=== PATIENT | male | born 1945 | race Caucasian/White ===

== ENCOUNTER 2021-03-31 08:31 | Day surgery (SDC) | payer MEDICARE, BC, OTHER ==
[2021-03-31] MEDS ORDERED: Acetaminophen 500 MG TAB PO SCH (08:45)
[2021-03-31] MEDS ORDERED: diphenhydrAMINE 25 MG CAP PO SCH (08:45)
[2021-03-31] MEDS ORDERED: Sodium Chloride 0.9% 30 ML ONE (08:47)
[2021-03-31 13:44] VITALS: BP 172/80; TEMP 98.3
== END 2021-03-31 13:56 | disposition home or self-care (01) ==
LOC: ONC/OP 08:31
PROVIDERS: ATTEND Internal Medicine Hematology & Oncology
PROC: 30233N1 Transfusion of Nonautologous Red Blood Cells into Peripheral Vein, Percutaneous Approach (ICD-10-PCS; principal; 2021-03-31)
DX: D64.9 Anemia, unspecified (principal); D69.6 Thrombocytopenia, unspecified
CPT/HCPCS: 36430; 86850; 86900; 86901; J1642; P9016; Q0163

== ENCOUNTER 2022-03-18 14:38 | Inpatient (IN) | payer MEDICARE, BC, OTHER ==
[2022-03-18 15:06] LABS: Bacteria/HPF None Seen HPF (None Seen); Bilirubin Negative (Negative); Blood, Urine 3+ (Negative); Clarity Clear (Clear); Glucose, Urine (Dipstick) Normal (Negative); Ketone, Urine Negative (Negative); Leukocyte Negative Leu/uL (Negative); Nitrite Negative (Negative); Protein, Urine (Dipstick) 100 mg/dL (Neg-Trace); RBC/HPF 0-3 HPF (0-3); Squamous Epithelial None Seen HPF (0-3); Urobilinogen Normal mg/dL (Less than 2); WBC/HPF 0-3 HPF (0-3)
[2022-03-18 15:46] LABS: Hemoglobin 13.3 g/dL (14.0-18.0); Mean Corpuscular HGB CONC 32.5 g/dL (32.0-36.0); Mean Platelet Volume 8.1 fL (7.4-10.4); Platelet Count 329 thou/uL (130-400); RBC Distribution Width 15.9 % (11.5-14.5); White Blood Cell (WBC) Count 9.8 thou/uL (4.8-10.8)
[2022-03-18 16:06] LABS: ALT (SGPT) 52 U/L (8-55); AST (SGOT) 136 U/L (5-34); Albumin 3.7 g/dL (3.4-4.8); Alkaline Phosphatase 56 U/L (40-110); Anion Gap 12 mmol/L (10-20); BUN (Urea Nitrogen) 24 mg/dL (8.4-25.7); Bilirubin, Total 0.8 mg/dL (0.2-1.2); Calc. Creatinine Clearance 0 mL/min (70-130); Calcium 9.3 mg/dL (7.8-10.44); Carbon Dioxide 23 mmol/L (23-31); Chloride 106 mmol/L (98-107); Globulin 3.1 g/dL (2.4-3.5); Glucose 107 mg/dL (83-110); Potassium 4.3 mmol/L (3.5-5.1); Protein, Total 6.8 g/dL (5.8-8.1); Sodium 137 mmol/L (136-145)
[2022-03-18 16:14] LABS: Anisocytosis SLIGHT = 6-15 cells (100X) (0-5/hpf); Burr Cells SLIGHT = 2-5 cells (100X) (0-1/hpf); Lymphocytes 74 % (21-51); MDiff Complete? YES; Macrocytosis SLIGHT = 6-15 cells (100X) (0-5/hpf); Monocytes 23 % (0-10); Platelet Morphology Comment Appears Adequate; Polychromasia SLIGHT = 2-3 cells (100X) (0-2/hpf); Reactive Lymphocytes 2 % (0-10); Tear Drops SLIGHT = 2-5 cells (100X) (0-1/hpf)
[2022-03-18 16:27] LABS: SARS-CoV-2 NAA Rapid Test Not Detected (NotDetected)
[2022-03-18] MEDS ORDERED: Iopamidol-370 76% 500 ML 1 ML ONE (16:27)
[2022-03-18] MEDS ORDERED: Vancomycin 1.5 GRAM/300 ML BAG 1.5 GM in Premix Bag 1 BAG IVPB SCH (18:15)
[2022-03-18] MEDS ORDERED: Cefepime 2 GM VIAL ONE (18:23)
[2022-03-18] MEDS ORDERED: tiZANidine HCl 4 MG TAB PO PRN (19:43)
[2022-03-18] MEDS: Acetaminophen 325 MG TAB PO PRN (21:25)
[2022-03-18] MEDS: Pregabalin 50 MG CAP PO SCH (21:26)
[2022-03-18] MEDS: Apixaban 5 MG TAB PO SCH (21:26)
[2022-03-18] MEDS: traMADol HCl 50 MG TAB PO PRN (21:27)
[2022-03-18] MEDS: Sodium Chloride 0.9% 1,000 ML IV SCH (21:28)
[2022-03-18] MEDS ORDERED: Piperacillin/Tazobactam 3.375 GM in Sodium Chloride 0.9% 100 ML IVPB SCH ×2 (22:00→23:59)
[2022-03-18 23:48] VITALS: BMI 27.5
[2022-03-19] MEDS: Piperacillin/Tazobactam 3.375 GM in Sodium Chloride 0.9% 100 ML IVPB SCH ×3 (03:17→22:02)
[2022-03-19 07:04] LABS: Hemoglobin 12.2 g/dL (14.0-18.0); Mean Corpuscular HGB CONC 32.9 g/dL (32.0-36.0); Mean Corpuscular Hemoglobin 34.1 pg (27.0-31.0); Mean Platelet Volume 8.4 fL (7.4-10.4); Platelet Count 319 thou/uL (130-400); RBC Distribution Width 15.9 % (11.5-14.5); Red Blood Cell (RBC) Count 3.57 mill/uL (4.70-6.10); White Blood Cell (WBC) Count 5.8 thou/uL (4.8-10.8)
[2022-03-19 08:56] LABS: Anisocytosis SLIGHT = 6-15 cells (100X) (0-5/hpf); Burr Cells SLIGHT = 2-5 cells (100X) (0-1/hpf); Large Platelets SLIGHT; Lymphocytes 65 % (21-51); MDiff Complete? YES; Macrocytosis SLIGHT = 6-15 cells (100X) (0-5/hpf); Monocytes 34 % (0-10); Platelet Morphology Comment Appears Adequate; Vacuoles SLIGHT
[2022-03-19 08:57] LABS: Anion Gap 12 mmol/L (10-20); BUN (Urea Nitrogen) 21 mg/dL (8.4-25.7); Calc. Creatinine Clearance 69 mL/min (70-130); Calcium 8.6 mg/dL (7.8-10.44); Carbon Dioxide 21 mmol/L (23-31); Chloride 109 mmol/L (98-107); Glucose 97 mg/dL (83-110); Potassium 3.8 mmol/L (3.5-5.1); Sodium 138 mmol/L (136-145)
[2022-03-19] MEDS: Aspirin 81 mg Enteric Coated Tablet PO SCH (10:03)
[2022-03-19] MEDS: Pregabalin 50 MG CAP PO SCH ×3 (10:03→22:02)
[2022-03-19] MEDS: Tamsulosin HCl 0.4 MG CAP PO SCH (10:03)
[2022-03-19] MEDS: Apixaban 5 MG TAB PO SCH ×2 (10:04→22:02)
[2022-03-19] MEDS: traMADol HCl 50 MG TAB PO PRN ×2 (10:04→17:31)
[2022-03-19] MEDS: Sodium Chloride 0.9% 1,000 ML IV SCH ×2 (10:05→23:05)
[2022-03-19] MEDS ORDERED: Allopurinol 100 MG TAB PO PRN (10:07)
[2022-03-19] MEDS ORDERED: Non-Formulary Item 1 EACH (Desvenlafaxine [Desvenlafaxine Er] 50 MG Tab.Er.24h) PO SCH (10:07)
[2022-03-19] MEDS ORDERED: Non-Formulary Item 1 EACH (Omeprazole [Omeprazole] 40 MG Capsule.Dr) PO SCH (10:07)
[2022-03-19] MEDS ORDERED: Non-Formulary Item 1 EACH (Brimonidine Tartrate [Brimonidine Tartrate 0.15% Ophth Soln] 1 EA EYE SCH (10:07)
[2022-03-19] MEDS ORDERED: Latanoprost 0.005% Ophth Soln 2.5 ml Bottle EA EYE SCH (10:07)
[2022-03-19] MEDS ORDERED: valACYclovir 500 MG TAB PO SCH ×2 (10:07→11:00)
[2022-03-19] MEDS ORDERED: Prochlorperazine Maleate 5 MG TAB PO PRN (10:07)
[2022-03-19] MEDS ORDERED: Iopamidol-370 76% 500 ML 1 ML ONE (10:27)
[2022-03-19] MEDS: Fioricet 325/50/40 mg Tablet PO PRN (16:14)
[2022-03-19] MEDS: VANCOMYCIN 1.75 GM/500 ML BAG 1.75 GM in Premix Bag 1 BAG IVPB SCH (16:23)
[2022-03-19] MEDS ORDERED: Non-Formulary Item 1 EACH (Rosuvastatin Calcium [Rosuvastatin Calcium] 40 MG Tablet) PO SCH (21:00)
[2022-03-19] MEDS: HYDROcodone/Acetaminophen 10/325 mg Tablet PO PRN (22:00)
[2022-03-19] MEDS: Rosuvastatin 20 MG TAB PO SCH (22:01)
[2022-03-19] MEDS: valACYclovir 500 MG TAB PO SCH (22:02)
[2022-03-20] MEDS: Fioricet 325/50/40 mg Tablet PO PRN ×3 (00:08→16:48)
[2022-03-20] MEDS: Piperacillin/Tazobactam 3.375 GM in Sodium Chloride 0.9% 100 ML IVPB SCH ×3 (03:22→16:46)
[2022-03-20 06:30] LABS: Anion Gap 11 mmol/L (10-20); BUN (Urea Nitrogen) 14 mg/dL (8.4-25.7); Calc. Creatinine Clearance 81 mL/min (70-130); Calcium 7.9 mg/dL (7.8-10.44); Carbon Dioxide 19 mmol/L (23-31); Chloride 113 mmol/L (98-107); Glucose 95 mg/dL (83-110); Potassium 3.2 mmol/L (3.5-5.1); Sodium 140 mmol/L (136-145)
[2022-03-20 06:52] LABS: Hypochromia SLIGHT = 6-15 cells (100X) (0-5/hpf); Lymphocytes 79 % (21-51); MDiff Complete? YES; Macrocytosis SLIGHT = 6-15 cells (100X) (0-5/hpf); Mean Corpuscular HGB CONC 32.4 g/dL (32.0-36.0); Mean Corpuscular Hemoglobin 33.9 pg (27.0-31.0); Mean Platelet Volume 8.4 fL (7.4-10.4); Monocytes 8 % (0-10); Neutrophil 11 % (42-75); Platelet Count 340 thou/uL (130-400); Platelet Morphology Comment Appears Adequate; RBC Distribution Width 16.1 % (11.5-14.5); Reactive Lymphocytes 2 % (0-10); Red Blood Cell (RBC) Count 3.25 mill/uL (4.70-6.10); White Blood Cell (WBC) Count 6.4 thou/uL (4.8-10.8)
[2022-03-20] MEDS: Apixaban 5 MG TAB PO SCH ×2 (07:03→20:35)
[2022-03-20] MEDS: Latanoprost 0.005% Ophth Soln 2.5 ml Bottle EA EYE SCH ×2 (07:04→11:06)
[2022-03-20] MEDS: Pregabalin 50 MG CAP PO SCH ×3 (07:04→20:33)
[2022-03-20] MEDS: Aspirin 81 mg Enteric Coated Tablet PO SCH ×2 (07:04→11:02)
[2022-03-20] MEDS: Brimonidine Tartrate 0.2% Ophth Soln 5 ml Bottle EA EYE SCH ×2 (07:04→11:06)
[2022-03-20] MEDS: valACYclovir 500 MG TAB PO SCH ×3 (07:05→20:34)
[2022-03-20] MEDS: Venlafaxine HCl XR 75 MG CAP PO SCH ×2 (07:05→11:03)
[2022-03-20] MEDS: Tamsulosin HCl 0.4 MG CAP PO SCH ×2 (07:05→11:03)
[2022-03-20] MEDS ORDERED: Lidocaine 1% w/Epinephrine 1:100K 20 ML VIAL ONE (07:19)
[2022-03-20] MEDS ORDERED: Bupivacaine PF 0.5% 30 ML VIAL ONE (07:19)
[2022-03-20] MEDS ORDERED: fentaNYL Citrate/PF 100 MCG/2 ML SYRINGE ONE ×2 (07:24→08:56)
[2022-03-20] MEDS ORDERED: Lidocaine 2% Jelly 5 ML TUBE ONE (07:25)
[2022-03-20] MEDS ORDERED: Dexamethasone 20 MG/5 ML VIAL ONE (07:54)
[2022-03-20] MEDS ORDERED: ePHEDrine 50 MG/ML VIAL ONE (07:54)
[2022-03-20] MEDS ORDERED: PROPOFOL 200 MG/20 ML VIAL ONE (07:54)
[2022-03-20] MEDS ORDERED: Ondansetron PF 4 MG/2 ML Vial ONE (07:54)
[2022-03-20] MEDS ORDERED: PHENYLEPHRINE-NS 100 MCG/ML 10 ML SYRINGE ONE (07:54)
[2022-03-20] MEDS ORDERED: Potassium Chloride 20 MEQ TAB PO SCH (10:00)
[2022-03-20] MEDS: Sodium Chloride 0.9% 1,000 ML IV SCH (10:17)
[2022-03-20] MEDS: traMADol HCl 50 MG TAB PO PRN ×2 (16:48→23:40)
[2022-03-20] MEDS: VANCOMYCIN 1.75 GM/500 ML BAG 1.75 GM in Premix Bag 1 BAG IVPB SCH (17:17)
[2022-03-20] MEDS: Rosuvastatin 20 MG TAB PO SCH (20:33)
[2022-03-20] MEDS: HYDROcodone/Acetaminophen 10/325 mg Tablet PO PRN (22:36)
[2022-03-21] MEDS: Sodium Chloride 0.9% 1,000 ML IV SCH ×3 (01:41→12:27)
[2022-03-21] MEDS: Piperacillin/Tazobactam 3.375 GM in Sodium Chloride 0.9% 100 ML IVPB SCH ×3 (01:41→17:07)
[2022-03-21] MEDS: traMADol HCl 50 MG TAB PO PRN ×2 (05:22→12:25)
[2022-03-21 06:09] LABS: Anion Gap 10 mmol/L (10-20); BUN (Urea Nitrogen) 12 mg/dL (8.4-25.7); Calc. Creatinine Clearance 83 mL/min (70-130); Calcium 7.6 mg/dL (7.8-10.44); Carbon Dioxide 19 mmol/L (23-31); Chloride 114 mmol/L (98-107); Glucose 102 mg/dL (83-110); Potassium 3.4 mmol/L (3.5-5.1); Sodium 140 mmol/L (136-145)
[2022-03-21 06:41] LABS: Burr Cells SLIGHT = 2-5 cells (100X) (0-1/hpf); Hemoglobin 10.2 g/dL (14.0-18.0); Lymphocytes 81 % (21-51); MDiff Complete? YES; Macrocytosis MODERATE=16-30 cells (100X) (0-5/hpf); Mean Corpuscular HGB CONC 33.2 g/dL (32.0-36.0); Mean Corpuscular Hemoglobin 34.8 pg (27.0-31.0); Mean Platelet Volume 8.3 fL (7.4-10.4); Monocytes 18 % (0-10); Platelet Count 319 thou/uL (130-400); Platelet Morphology Comment Appears Adequate; RBC Distribution Width 16.1 % (11.5-14.5); Red Blood Cell (RBC) Count 2.93 mill/uL (4.70-6.10); Rouleaux Formation SLIGHT = 1-5 cells (100X) (None Seen); Target Cells SLIGHT = 2-5 cells (100X) (0-1/hpf); Tear Drops SLIGHT = 2-5 cells (100X) (0-1/hpf); White Blood Cell (WBC) Count 4.9 thou/uL (4.8-10.8)
[2022-03-21] MEDS ORDERED: Potassium Chloride 20 MEQ TAB PO SCH (08:15)
[2022-03-21] MEDS: Apixaban 5 MG TAB PO SCH ×2 (09:11→20:52)
[2022-03-21] MEDS: Tamsulosin HCl 0.4 MG CAP PO SCH (09:11)
[2022-03-21] MEDS: Famotidine 20 MG TAB PO SCH ×2 (09:11→20:51)
[2022-03-21] MEDS: Aspirin 81 mg Enteric Coated Tablet PO SCH (09:11)
[2022-03-21] MEDS: valACYclovir 500 MG TAB PO SCH ×2 (09:11→20:51)
[2022-03-21] MEDS: Pregabalin 50 MG CAP PO SCH ×3 (09:12→20:51)
[2022-03-21] MEDS: Venlafaxine HCl XR 75 MG CAP PO SCH (09:12)
[2022-03-21] MEDS: Brimonidine Tartrate 0.2% Ophth Soln 5 ml Bottle EA EYE SCH (09:13)
[2022-03-21] MEDS: Latanoprost 0.005% Ophth Soln 2.5 ml Bottle EA EYE SCH (09:13)
[2022-03-21] MEDS: HYDROcodone/Acetaminophen 10/325 mg Tablet PO PRN ×2 (09:15→15:08)
[2022-03-21] MEDS: Fioricet 325/50/40 mg Tablet PO PRN (13:41)
[2022-03-21] MEDS: Acetaminophen 325 MG TAB PO PRN (17:06)
[2022-03-21] MEDS ORDERED: Morphine 4 MG/ML VIAL SLOW IVP PRN (17:22)
[2022-03-21] MEDS ORDERED: traMADol HCl 50 MG TAB PO PRN (17:45)
[2022-03-21] MEDS: Rosuvastatin 20 MG TAB PO SCH (20:51)
[2022-03-22] MEDS: Piperacillin/Tazobactam 3.375 GM in Sodium Chloride 0.9% 100 ML IVPB SCH ×3 (02:08→17:52)
[2022-03-22] MEDS: Sodium Chloride 0.9% 1,000 ML IV SCH ×2 (04:26→14:55)
[2022-03-22] MEDS: Acetaminophen 325 MG TAB PO PRN ×3 (05:01→19:11)
[2022-03-22] MEDS: Venlafaxine HCl XR 75 MG CAP PO SCH (08:41)
[2022-03-22] MEDS: Pregabalin 50 MG CAP PO SCH ×3 (08:41→20:51)
[2022-03-22] MEDS: Tamsulosin HCl 0.4 MG CAP PO SCH (08:41)
[2022-03-22] MEDS: valACYclovir 500 MG TAB PO SCH ×2 (08:41→20:53)
[2022-03-22] MEDS: Famotidine 20 MG TAB PO SCH ×2 (08:42→20:53)
[2022-03-22] MEDS: Latanoprost 0.005% Ophth Soln 2.5 ml Bottle EA EYE SCH (08:42)
[2022-03-22] MEDS: Aspirin 81 mg Enteric Coated Tablet PO SCH (08:42)
[2022-03-22] MEDS: Brimonidine Tartrate 0.2% Ophth Soln 5 ml Bottle EA EYE SCH (08:42)
[2022-03-22] MEDS: Apixaban 5 MG TAB PO SCH ×2 (08:42→20:53)
[2022-03-22] MEDS: HYDROcodone/Acetaminophen 10/325 mg Tablet PO PRN (11:00)
[2022-03-22 11:26] LABS: CSF RBC Count - Manual 0 /cu.mm (None Seen); CSF Source CSF; CSF WBC/NonHematics Count-Man 1 /cu.mm (0-5); Clarity Clear (Clear); Tube # 1
[2022-03-22 11:27] LABS: CSF Source CSF; Clarity Clear (Clear); Tube # 2
[2022-03-22 11:28] LABS: CSF RBC Count - Manual 0 /cu.mm (None Seen); CSF WBC/NonHematics Count-Man 0 /cu.mm (0-5)
[2022-03-22 11:39] LABS: Color Of CSF Supernatant COLORLESS (Colorless); Tube # 2; Unspun CSF Color COLORLESS (Colorless)
[2022-03-22] MEDS ORDERED: SUMAtriptan Succinate 50 MG TAB PO SCH ×2 (11:45)
[2022-03-22 11:52] LABS: CSF, Glucose 59 mg/dl (40-70); CSF, Protein 38 mg/dL (15-40)
[2022-03-22 19:39] LABS: Vancomycin, Trough 14.5 ug/mL
[2022-03-22] MEDS: Rosuvastatin 20 MG TAB PO SCH (20:53)
[2022-03-22] MEDS: Fioricet 325/50/40 mg Tablet PO PRN (21:10)
[2022-03-23] MEDS: Piperacillin/Tazobactam 3.375 GM in Sodium Chloride 0.9% 100 ML IVPB SCH ×2 (02:24→09:15)
[2022-03-23] MEDS: Fioricet 325/50/40 mg Tablet PO PRN (05:11)
[2022-03-23] MEDS: Sodium Chloride 0.9% 1,000 ML IV SCH (05:16)
[2022-03-23 06:59] LABS: Anion Gap 10 mmol/L (10-20); BUN (Urea Nitrogen) 9 mg/dL (8.4-25.7); Calc. Creatinine Clearance 117 mL/min (70-130); Calcium 7.5 mg/dL (7.8-10.44); Carbon Dioxide 19 mmol/L (23-31); Chloride 116 mmol/L (98-107); Glucose 91 mg/dL (83-110); Potassium 3.7 mmol/L (3.5-5.1); Sodium 141 mmol/L (136-145)
[2022-03-23 07:03] LABS: Hemoglobin 10.7 g/dL (14.0-18.0); Hypochromia SLIGHT = 6-15 cells (100X) (0-5/hpf); Lymphocytes 33 % (21-51); MDiff Complete? YES; Mean Corpuscular HGB CONC 33.6 g/dL (32.0-36.0); Mean Corpuscular Hemoglobin 33.9 pg (27.0-31.0); Mean Platelet Volume 8.1 fL (7.4-10.4); Metamyelocyte 1 % (0-0); Monocytes 24 % (0-10); Neutrophil 32 % (42-75); Platelet Count 368 thou/uL (130-400); Platelet Morphology Comment Appears Adequate; RBC Distribution Width 16.4 % (11.5-14.5); Reactive Lymphocytes 10 % (0-10); Red Blood Cell (RBC) Count 3.15 mill/uL (4.70-6.10); White Blood Cell (WBC) Count 5.9 thou/uL (4.8-10.8)
[2022-03-23] MEDS: Acetaminophen 325 MG TAB PO PRN ×2 (09:15→13:11)
[2022-03-23] MEDS: Tamsulosin HCl 0.4 MG CAP PO SCH (09:15)
[2022-03-23] MEDS: Aspirin 81 mg Enteric Coated Tablet PO SCH (09:15)
[2022-03-23] MEDS: Pregabalin 50 MG CAP PO SCH (09:15)
[2022-03-23] MEDS: Venlafaxine HCl XR 75 MG CAP PO SCH (09:15)
[2022-03-23] MEDS: Apixaban 5 MG TAB PO SCH (09:15)
[2022-03-23] MEDS: valACYclovir 500 MG TAB PO SCH (09:16)
[2022-03-23] MEDS: Famotidine 20 MG TAB PO SCH (09:16)
[2022-03-23] MEDS: Latanoprost 0.005% Ophth Soln 2.5 ml Bottle EA EYE SCH (09:16)
[2022-03-23] MEDS: Brimonidine Tartrate 0.2% Ophth Soln 5 ml Bottle EA EYE SCH (09:16)
[2022-03-23] MEDS ORDERED: traMADol HCl 50 MG TAB PO SCH (09:45)
[2022-03-23] MEDS ORDERED: SUMAtriptan Succinate 50 MG TAB PO SCH (10:45)
[2022-03-23] MEDS ORDERED: SUMAtriptan Succinate 50 MG TAB PO PRN (11:29)
[2022-03-23 15:23] VITALS: BP 128/73; TEMP 98.5
[2022-03-25 09:18] LABS: CMV DNA-PCR Test Negative (Negative)
== END 2022-03-23 15:23 | disposition home or self-care (01) | DRG 802 ==
LOC: ERS 14:38 → T4-A 18:37 → OBSVTOIN 18:50 → INTOOBSV 18:50 → T4-A 19:48 → OBSVTOIN 03-21 13:06
PROVIDERS: ADMIT Emergency Medicine; ATTEND Emergency Medicine
PROC: 3E03329 Introduction of Other Anti-infective into Peripheral Vein, Percutaneous Approach (ICD-10-PCS; 2022-03-18)
PROC: 07BH0ZX Excision of Right Inguinal Lymphatic, Open Approach, Diagnostic (ICD-10-PCS; principal; 2022-03-20)
PROC: 009U3ZX Drainage of Spinal Canal, Percutaneous Approach, Diagnostic (ICD-10-PCS; 2022-03-22)
PROC: B01B1ZZ Fluoroscopy of Spinal Cord using Low Osmolar Contrast (ICD-10-PCS; 2022-03-22)
DX: L04.3 Acute lymphadenitis of lower limb (principal); A41.52 Sepsis due to Pseudomonas; C90.00 Multiple myeloma not having achieved remission; L03.116 Cellulitis of left lower limb; G61.0 Guillain-Barre syndrome; Z94.81 Bone marrow transplant status; L03.115 Cellulitis of right lower limb; Z20.822 Contact with and (suspected) exposure to COVID-19; G43.909 Migraine, unspecified, not intractable, without status migrainosus; R91.8 Other nonspecific abnormal finding of lung field; I25.10 Atherosclerotic heart disease of native coronary artery without angina pectoris; N40.0 Benign prostatic hyperplasia without lower urinary tract symptoms; E78.5 Hyperlipidemia, unspecified; I48.91 Unspecified atrial fibrillation; K21.9 Gastro-esophageal reflux disease without esophagitis; Z96.611 Presence of right artificial shoulder joint; Z96.612 Presence of left artificial shoulder joint; J32.9 Chronic sinusitis, unspecified; M79.89 Other specified soft tissue disorders; E87.6 Hypokalemia; Z87.891 Personal history of nicotine dependence; Z79.899 Other long term (current) drug therapy; Z79.02 Long term (current) use of antithrombotics/antiplatelets; Z79.82 Long term (current) use of aspirin; Z79.01 Long term (current) use of anticoagulants; Z98.890 Other specified postprocedural states; Z90.49 Acquired absence of other specified parts of digestive tract; Z98.49 Cataract extraction status, unspecified eye; Z80.3 Family history of malignant neoplasm of breast
CPT/HCPCS: 36415; 62270; 70470; 71045; 74177; 80048; 80053; 80202; 81001; 82945; 83605; 84157; 85025; 87040; 87070; 87077; 87186; 87205; 87497; 87899; 88304; 89051; 96365; 96366; 96367; 96375; 96376; G0378; J0692; J1100; J1642; J2270; J2405; J2543; J2704; J3370; J3490; J7030; J7050; Q9967; S0020